=== PATIENT | male | born 1995 | race Two or more races ===

== ENCOUNTER 2025-01-10 06:09 | Day surgery (SDC) | payer MEDICAID ==
[2025-01-06 08:15] LABS: Urine Bacteria None Seen /hpf (None Seen)
[2025-01-06 08:43] LABS: Basophils # (auto) 0.1 10 ^3/uL (0-0.2); Basophils % (auto) 0.8 % (0.0-2.0); Eosinophils # (auto) 0.4 10 ^3/uL (0-0.8); Eosinophils % (auto) 5.2 % (0.0-7.0); Hematocrit 44.6 % (41.0-53.0); Hemoglobin 15.5 g/dL (13.5-17.5); Lymphocytes % (auto) 24.3 % (10.0-50.0); Mean Corpuscular Hemoglobin 31.1 pg (28.0-32.0); Mean Corpuscular Hgb Conc. 34.8 g/dL (32.0-36.0); Mean Corpuscular Volume 89.4 fL (80.0-100.0); Monocytes # (auto) 0.8 10 ^3/uL (0-1.3); Monocytes % (auto) 9.3 % (0.0-12.0); Neutrophils % (auto) 60.4 % (37.0-80.0); Platelet Count (auto) 364 10^3/uL (140-450); Red Blood Cells 4.99 10^6/uL (4.5-5.90); Red Cell Distribution Width 13.6 % (11.8-14.3); White Blood Cell 8.3 10^3/uL (4.4-10.8)
[2025-01-06 08:53] LABS: Urine Amorphous Crystal FEW /hpf (None Seen); Urine Blood Negative /uL (Negative); Urine Clarity Clear (Clear); Urine Color Yellow (Yellow); Urine Protein, UAD Negative (Negative); Urine Specific Gravity 1.033 (1.001-1.035); Urine Squamous Epithelial Cell FEW /hpf (<5); Urine Urobilinogen 2 mg/dL (Negative); Urine WBC 3 /HPF (0-3); Urine pH 5.5 (5.0-9.0)
[2025-01-06 09:03] LABS: Anion Gap 6 (5-15); Aspartate Aminotransferase 31 U/L (13-40); BUN/Creatinine Ratio 13.3 (10.0-20.0); Bilirubin, Total 0.5 mg/dL (0.2-1.0); Blood Urea Nitrogen 14 mg/dL (9-23); Chloride 102 mmol/L (98-107); Glucose 84 mg/dL (74-106); Potassium 3.8 mmol/L (3.5-5.1); Sodium 140 mmol/L (136-145); Total Protein 7.3 g/dL (5.7-8.2)
[2025-01-06 09:05] LABS: INR 0.97 (0.9-1.15); Partial Thromboplastin Time 32.7 SEC (24.5-34.5); Prothrombin Time 10.3 sec (9.3-11.8)
[2025-01-06 09:09] LABS: Alanine Aminotransferase 53 U/L (7-40); Albumin 4.9 g/dL (3.2-4.8); Alkaline Phosphatase 125 U/L (46-116); Carbon Dioxide 32 mmol/L (20-31)
[~2025-01-10] VITALS: Ht 170.2 cm; Wt 81.6 kg
[2025-01-10] MEDS ORDERED: ROPIVACAINE 0.5% (5MG/ML) 20ML AMPULE IJ ONE (06:52)
[2025-01-10] MEDS ORDERED: BUPIVACAINE HCL 50 ML ONE (07:02)
[2025-01-10] MEDS ORDERED: MIDAZOLAM HCL 2MG/2ML 2ml VIAL (1mg/ml) ONE (07:03)
[2025-01-10] MEDS ORDERED: KETAMINE 50mg/ML 1ml syringe ONE (07:03)
[2025-01-10] MEDS ORDERED: fentaNYL CITRATE 100 MCG/2 ML VL ONE (07:03)
[2025-01-10] MEDS ORDERED: KETOROLAC TROMETH 30 MG/ML 1ML VIAL ONE (07:04)
[2025-01-10] MEDS ORDERED: GLYCOPYRROLATE 0.2 MG/ML 1ML VIAL ONE (07:04)
[2025-01-10] MEDS ORDERED: DexAMETHasone SOD PHOS 10MG/1ML VIAL INJ ONE (07:04)
[2025-01-10] MEDS ORDERED: LIDOCAINE 2% (LOCAL ANESTH.) PF 5ml SDV ONE (07:04)
[2025-01-10] MEDS ORDERED: PROPOFOL 10 MG/ML 20 ML IV ONE (07:04)
[2025-01-10] MEDS ORDERED: ONDANSETRON HCL 4 MG/2 ML VIAL ONE (07:04)
[2025-01-10] MEDS ORDERED: ceFAZolin 1GM/50ML 0 ML IV ONE (07:21)
[2025-01-10] MEDS: ceFAZolin 1GM VL ONE (07:21)
[2025-01-10] MEDS ORDERED: HYDROmorphone HCL 2 MG/ML VL/or syr ONE (07:40)
[2025-01-10] MEDS: BACITRACIN TOP OINT 1 UD PKG TOP ONE (07:58)
[2025-01-10 09:48] VITALS: PULSE 92; RESP 10; O2SAT 100
[2025-01-10] MEDS ORDERED: HYDROmorphone HCL 2 MG/ML VL/or syr IV PRN (10:00)
[2025-01-10] MEDS ORDERED: ONDANSETRON HCL 4 MG/2 ML VIAL IV ONE (10:00)
[2025-01-10 11:30] VITALS: BP 127/79; PULSE 92; RESP 14; O2SAT 98
--- NOTE | 2025-01-10 14:46 | DVH ---
FLUOROSCOPY TIME: 6.2 seconds TECHNIQUE: Intraoperative radiographs of the left knee were obtained. COMPARISON: None FINDINGS: Refer to intraoperative report for further evaluation. IMPRESSION: Refer to intraoperative report for further evaluation.
--- NOTE | 2025-01-10 17:22 | DVHOP2 ---
Operative Report - 2 Report Details Date: 01/10/25 Preop Diagnosis: Left knee anterior cruciate ligament tear with bucket-handle medial meniscus tear and lateral meniscus complex tear, chondromalacia and full-thickness defect of the medial femoral condyle Postop Diagnosis: Left knee anterior cruciate ligament tear with bucket-handle medial meniscus tear, lateral meniscus complex tear, chondromalacia of the medial femoral condyle and full-thickness cartilage defect Surgeon: Henri Cade MD Shellfish Checker: BOO Ocampo Anesthesiologist: Dr. Jules Anesthesia: General, Regional Implant: [employer] ultra button x2, [employer] FiberTak x4, [employer] fast fix 360 x2 Consent: The patient was informed of the risks and benefits of the procedure. These include but are not limited to complications of anesthesia, postoperative infection, incomplete relief of symptoms, recurrence of symptoms, damage to blood vessels, nerves and tendons, deep venous thrombosis, pulmonary embolism and possible need for repeat surgery in the future. Estimated Blood Loss: Less than 10 mL Indications for Surgery: The patient is a 29-year-old male who presented to the clinic with a history of knee injury. Clinical and radiological evaluation demonstrated complete ACL tear with bucket-handle medial meniscus tear and lateral meniscus tear. Nonoperative and operative management options were discussed with surgery in the form of knee arthroscopy with ACL reconstruction and meniscus repairs was discussed with the him. Full-thickness chondral defect was noted as well on the MRI. Further cartilage procedures based on how it looks during the surgery was also discussed with him. Benefits, risks and treatment alternatives were discussed. Specific complications of the surgery such as neurovascular injury, infection, arthrofibrosis, loss of limb or life were discussed. He decided to proceed with the surgical option. Name of Procedure Performed Left knee arthroscopy with anterior cruciate ligament reconstruction using allograft, complex medial meniscus repair with four fiber stitch devices, lateral meniscus repair, chondroplasty of the medial femoral condyle Procedure Details Procedure Details: Procedure Details: The patient was identified in the preoperative holding area and the surgical site was marked. The consent was verified. The patient was brought into the operating room and placed supine on the operating table. General anesthesia was administered. Intravenous antibiotics were given. The extremity was prepped and draped in the usual sterile manner. All the bony prominences were appropriately padded. The extremity was examined under anesthesia and was found to have positive anterior drawer and Yue test with no endpoint. Pivot shift test was also positive. The extremity was prepped and draped in the usual sterile manner. A timeout was called to confirm the identity of patient, the nature of surgery, the availability of implants and x-rays and allergies to medications. Based on exam and MRI findings, an allograft was opened at the back table. This was a tibialis anterior allograft with a folded diameter of 10 mm. This was whip stitched upon itself and two buttons tied on either side. This was prepared with help of FiberWire stitches on both ends. This was placed on the Graftmaster under tension after mounting it on an Ultrabutton. Bacitracin ointment was applied. A standard anterior portal established. A 30 degree scope was inserted a standard anteromedial portal established, a probe was inserted and the findings are as follows 1. Complete ACL tear 2. 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 Medial meniscus tear, bucket-handle were displacement, scarring 4. Lateral meniscus tear, peripheral, complex 5. No loose bodies 6. Mild chondromalacia in the patellofemoral joint, normal tracking. Meniscus: The medial meniscus was probed. This was a bucket-handle tear with chronic degenerative changes. Significant swelling was noted. Extensive time and effort was needed to release the medial meniscus. Modifier 22-50% extra time and effort. After doing this, the meniscus could be reduced. I repaired it with all-inside meniscus repair device. Fiber stitch devices were used. Excellent reduction was noted. Four stitches were used. One fast fix 360 device was used but it did not hold up and had to be removed. The lateral meniscus was now probed. This was a peripheral tear with complex component. This was repaired using all-inside technique. Two fast fix 360 devices were used. Preparation of intercondylar notch: The remaining ACL remnant was removed with the help of a shaver. A notchplasty was performed with a bur. 3 to 4 mm of bone was removed to make way for the new graft. The footprint of the ACL site was also debrided. Preparation of femoral tunnel: An outside in jig was inserted. This was positioned at the center of the ACL footprint. A guidewire was inserted. Next a reamer was inserted. This was a retroreamer from [employer]. A 20 mm tunnel was drilled. The scope was inserted into the medial portal for this step and the integrity of the lateral and posterior wall was ensured. Preparation of tibiotalar: A tibial tunnel jig was inserted. A guidepin was inserted at the center of the ACL footprint remnant. This was approximately 7 mm anterior to the PCL fibers. Next a guide pin was inserted. Next a 10 mm reamer was inserted. Next, a loop was inserted from the femoral side and retrieved through the tibial tunnel. Passage of graft and fixation: The graft was now brought into the operative field and the sutures were passed from the tibial side to the femoral side. The button was visualized entering the femoral tunnel with the scope on the medial border. The button was now flipped. The position was ensured by tugging on the tibial side and by cycling the knee. This was a very secure fixation. Next the adjustable loop was pulled from the lateral side and the graft was inserted into the femoral tunnel. The graft was marked at 20 mm with 0 Vicryl and that was completely inside the tunnel ensuring at least 20 mm of the tunnel inside the graft. The tibial side was now fixed with the other adjustable button. This was tensioned with the knee in 10 degrees of flexion, posterior drawer force and moderate tension on the graft. Excellent fixation was noted. The adjustable loop was tension from both sides. The scope was inserted inside the knee and the tension on the graft was noted to be excellent Microfracture and chondroplasty: The medial femoral condyle had grade III chondromalacia. This is approximately 10 mm in diameter. Chondroplasty was performed. He may later need cartilage transfer procedure a few still symptomatic. Irrigation was given. The skin incisions were closed with 2-0 Vicryl and 3-0 Monocryl. Sterile dressing was applied. A hinged range of motion brace set at -10 to 30 degrees was applied. Disposition: Good, the patient was extubated and taken to recovery without any complication Plan: Nonweightbearing for now. To follow-up in 1 to 2 weeks in the clinic. May range his knee as per brace settings. We will delay his range of motion due to the chronic bucket-handle tear. Condition Good Disposition Home HENRI CADE MD Jan 10, 2025 17:22
== END 2025-01-10 11:58 | disposition home or self-care (01) ==
LOC: SUR 06:09
PROVIDERS: ATTEND Orthopaedic Surgery Sports Medicine
DX: S83.512A Sprain of anterior cruciate ligament of left knee, initial encounter (principal); M22.42 Chondromalacia patellae, left knee; S83.272A Complex tear of lateral meniscus, current injury, left knee, initial encounter; S83.212A Bucket-handle tear of medial meniscus, current injury, left knee, initial encounter; X58.XXXA Exposure to other specified factors, initial encounter; Y93.89 Activity, other specified; Y92.89 Other specified places as the place of occurrence of the external cause; Y99.8 Other external cause status
CPT/HCPCS: 29879; 29883; 29888; 36415; 73560; 80053; 81001; 85025; 85610; 85730; C1713; J0690; J1100; J1171; J1885; J2003; J2250; J2405; J2704; J2795; J3010; J3490; 76000; 97110; 97116; 97163; 97530